=== PATIENT | female | born 1935 | race Two or more races ===

== ENCOUNTER 2021-11-01 18:13 | Inpatient (IN) | payer OTHER ==
[~2021-11-01] VITALS: Ht 152.4 cm; Wt 54.4 kg
[2021-11-01] MEDS ORDERED: METROPOLOL (19:24)
[2021-11-02] MEDS ORDERED: LISINOPRIL-HCT1 EACH (13:33)
[2021-11-02] MEDS ORDERED: PANTOPRAZOLE SO40 MG (13:33)
[2021-11-02] MEDS ORDERED: ALPRAZOLAM0.5 MG (13:33)
[2021-11-02] MEDS ORDERED: VITAMIN D350 MCG (13:34)
[2021-11-02] MEDS ORDERED: METOPROLOL SUCC50 MG (13:34)
[2021-11-02] MEDS ORDERED: ST. JOSEPH ASPI81 M2 (13:34)
[2021-11-02] MEDS ORDERED: SIMVASTATIN20 MG (13:34)
[2021-11-09] MEDS ORDERED: LOSARTAN POTAS100 MG PO (16:51)
[2021-11-09] MEDS ORDERED: INTESTINEX680 M1 PO (16:52)
[2021-11-09] MEDS ORDERED: NIFEDIPINE ER30 M1 PO (16:56)
== END 2021-11-09 18:06 | disposition home or self-care (01) | DRG 690 ==
LOC: ER 18:13 → MEDI 11-02 10:28
PROVIDERS: ADMIT Internal Medicine; ATTEND Internal Medicine
PROC: BW21ZZZ Computerized Tomography (CT Scan) of Abdomen and Pelvis (ICD-10-PCS; principal; 2021-11-02)
DX: N39.0 Urinary tract infection, site not specified (principal); Z16.12 Extended spectrum beta lactamase (ESBL) resistance; N17.8 Other acute kidney failure; K52.89 Other specified noninfective gastroenteritis and colitis; D64.9 Anemia, unspecified; E86.0 Dehydration; E87.6 Hypokalemia; B96.1 Klebsiella pneumoniae [K. pneumoniae] as the cause of diseases classified elsewhere; I10 Essential (primary) hypertension; D12.8 Benign neoplasm of rectum; Z20.822 Contact with and (suspected) exposure to COVID-19

== ENCOUNTER 2022-01-24 23:53 | Emergency (ER) | payer OTHER ==
[~2022-01-24] VITALS: Ht 152.4 cm; Wt 55.3 kg
[~2022-01-24 23:53] MED LIST: ALPRAZOLAM0.5 MG; INTESTINEX680 M1 PO; LISINOPRIL-HCT1 EACH; LOSARTAN POTAS100 MG PO; METOPROLOL SUCC50 MG; METROPOLOL; NIFEDIPINE ER30 M1 PO; PANTOPRAZOLE SO40 MG; SIMVASTATIN20 MG; ST. JOSEPH ASPI81 M2; VITAMIN D350 MCG
[2022-01-25] MEDS ORDERED: PEPCID40 MG PO (08:05)
[2022-01-25] MEDS ORDERED: ONDANSETRON ODT4 MG PO (08:05)
== END 2022-01-25 08:22 ==
LOC: ER 23:53
DX: R11.10 Vomiting, unspecified (principal); I10 Essential (primary) hypertension

== ENCOUNTER 2022-12-30 18:54 | Inpatient (IN) | payer OTHER ==
[~2022-12-30] VITALS: Ht 152.4 cm; Wt 63.5 kg
[~2022-12-30 18:54] MED LIST changes: +ONDANSETRON ODT4 MG PO; +PEPCID40 MG PO
--- NOTE | 2022-12-30 19:05 | NUR ---
SE RECIBE FEMINA ALERTA Y DESORIENTADA EN AMBULANCIA EN COMPANIA DE FAMILIAR. REFIERE QUE PTE NO COME HACE APROX 3 [address]. SE MIDEN S/V Y SE UBICA.
[2022-12-30] MEDS ORDERED: LOSARTAN POTAS100 MG PO (19:07)
[2022-12-30] MEDS ORDERED: NIFEDIPINE ER30 M1 PO (19:07)
[2022-12-30] MEDS ORDERED: ALENDRONATE SOD70 MG PO (19:08)
[2022-12-30] MEDS ORDERED: OLANZAPINE2.5 MG PO (19:08)
--- NOTE | 2022-12-30 19:23 | NUR ---
PTE FEMENINA EVALUADA POR . SE ORIENTA A PTE Y FAMILIAR SOBRE ORDENES DE [place] REFIEREN COMPRENDER. SE COELCTAN MUESTRAS DE LABROATORIOS, BAJO MEDIDAS ASEPTICAS. SE OBSERVA PTE CON CANALIZACION EN MANO L+ CON ANGIO #20 PROVENIENTE DE AMBULANCIA, PATENTE RYANNE DE EDEMA Y ERITEMA. SE ADMINISTRAN LQIUIDOS INTRAVENOSOS, XAVI ORDEN MEDICA. SE NOTIFICA A RADIOLOGIA PARA XRAY.
== END 2023-01-03 12:43 | disposition home health service (06) | DRG 194 ==
LOC: ER 18:54 → MEDJ 23:42 → SEC-K 23:42 → MEDJ 12-31 02:14
PROVIDERS: General Practice; ADMIT Internal Medicine; ATTEND Internal Medicine
PROC: BW21ZZZ Computerized Tomography (CT Scan) of Abdomen and Pelvis (ICD-10-PCS; principal; 2022-12-30)
PROC: BW24YZZ Computerized Tomography (CT Scan) of Chest and Abdomen using Other Contrast (ICD-10-PCS; 2022-12-30)
DX: J18.9 Pneumonia, unspecified organism (principal); N39.0 Urinary tract infection, site not specified; Z16.12 Extended spectrum beta lactamase (ESBL) resistance; B96.1 Klebsiella pneumoniae [K. pneumoniae] as the cause of diseases classified elsewhere; B95.2 Enterococcus as the cause of diseases classified elsewhere; E86.0 Dehydration; G30.9 Alzheimer's disease, unspecified; F02.80 Dementia in other diseases classified elsewhere, unspecified severity, without behavioral disturbance, psychotic disturbance, mood disturbance, and anxiety; R13.10 Dysphagia, unspecified; Z20.822 Contact with and (suspected) exposure to COVID-19

== ENCOUNTER 2023-05-26 14:40 | Inpatient (IN) | payer OTHER ==
[~2023-05-26] VITALS: Ht 152.4 cm; Wt 59.0 kg
[~2023-05-26 14:40] MED LIST changes: +ALENDRONATE SOD70 MG PO; +OLANZAPINE2.5 MG PO
[2023-05-26] MEDS ORDERED: 0.9 % SODIUM CHLORIDE 1,000 ML IV ONE (16:15)
[2023-05-26 17:25] LABS: HEMATOCRIT 44.2 % (36.0-45.00); HEMOGLOBIN 14.8 g/dL (12.0-15.00); MEAN CELL VOLUME 84.9 fL (80.00-100.00); MEAN CORPUSCULAR HEMOGLOBIN 28.4 pg (27.00-32.0); MEAN CORPUSCULAR HGB CONC 33.5 g/dl (32.0-36.0); PLATELET COUNT 197 K/uL (150-450); RED BLOOD COUNT 5.21 M/uL (4.00-6.00); RED CELL DISTRIBUTION WIDTH 14.3 % (11.5-14.5)
[2023-05-26 18:02] LABS: PH,URINE 5.5 (5.0-8.0); URINE APPEARANCE Turbid; URINE BILIRRUBIN Negative (NEGATIVE); URINE BLOOD Moderate; URINE COLOR Yellow; URINE LEUKOCYTE Moderate; URINE NITRATE Negative
[2023-05-26 18:06] LABS: URINE EPITHELIAL CELLS 12.6 uL (0.0-38.8); URINE RBC 84.5 uL (0.0-20.8)
[2023-05-26 18:18] LABS: INR 1.03; PARTIAL THROMBOPLASTIN TIME 31.5 SECONDS (22.0-34.0); PROTHROMBIN TIME 10.8 SECONDS (9.0-11.5)
[2023-05-26 18:26] LABS: ALBUMIN 3.1 gm/dL (3.4-5.0); BILIRUBIN TOTAL 0.28 mg/dL (0.3-1.2); CALCIUM 9.8 mg/dL (8.5-10.1); CREATININE SERUM 0.84 mg/dL (0.55-1.02); GFR 64.29; GLOBULINA 4.4 G/DL (2.4-3.5); POTASSIUM 3.52 mEq/L (3.5-5.1); TOTAL PROTEIN 7.5 gm/dL (6.4-8.2)
[2023-05-26] MEDS ORDERED: PIPERACILLIN/TAZOBACTAM SODIUM 3.375 GM VIAL IV ONE (18:45)
[2023-05-26 18:53] LABS: URINE BACTERIA > 9821.2 uL (0.0-1933); URINE GLUCOSE 500 MG/DL (NEGATIVE); URINE PROTEIN 100 (NEGATIVE)
[2023-05-26 19:04] LABS: URINE YEAST NEGATIVE /hpf
[2023-05-26] MEDS ORDERED: 0.9 % SODIUM CHLORIDE 1,000 ML IV SCH (22:15)
[2023-05-26] MEDS ORDERED: hydrALAZINE HCL 20 MG VIAL IV PRN (22:30)
[2023-05-26] MEDS ORDERED: ONDANSETRON HCL 4 MG in 0.9 % SODIUM CHLORIDE 50 ML IV PRN (22:30)
[2023-05-26] MEDS ORDERED: DEXTROSE 50 % IN WATER 0.5 G/ML DISP.SYRIN IV PRN (22:30)
[2023-05-26] MEDS ORDERED: INSULIN LISPRO 1,000 UNIT/10 ML UNITS SUBCUTANEO PRN (22:30)
[2023-05-27] MEDS ORDERED: PIPERACILLIN/TAZOBACTAM SODIUM 3.375 GM in 0.9 % SODIUM CHLORIDE 100 ML IV SCH
[2023-05-27] MEDS ORDERED: GLUCAGON 1 MG VIAL IV ONE (03:00)
[2023-05-27] MEDS ORDERED: ATROPINE SULFATE 0.1 MG/ML DISP.SYRIN IV SCH (08:00)
[2023-05-27 08:29] LABS: INR 1.06; PARTIAL THROMBOPLASTIN TIME 33.9 SECONDS (22.0-34.0); PROTHROMBIN TIME 11.1 SECONDS (9.0-11.5)
[2023-05-27 08:42] LABS: ALBUMIN 2.6 gm/dL (3.4-5.0); ALKALINE PHOSPHATASE 180 U/L (50-136); ALT/SGPT 443 U/L (12-78); AMYLASE 338 U/L (25-115); ANION GAP 13 (10.0-20.0); AST/SGOT 187 U/L (15-37); BILIRUBIN TOTAL 0.38 mg/dL (0.3-1.2); BLOOD UREA NITROGEN 25 mg/dL (7-18); BUN CREA RATIO 34 (7.0-25.0); CALCIUM 9.2 mg/dL (8.5-10.1); CARBON DIOXIDE 25 mEq/L (21-32); CHLORIDE 109 mmol/L (98-107); CHOL HDL RATIO 1.9 (0-5.0); CHOLESTEROL 125 mg/dL (0-200); CREATININE SERUM 0.73 mg/dL (0.55-1.02); GFR 75.59; GLOBULINA 3.4 G/DL (2.4-3.5); HDL 67 mg/dl (40-60); LDL 48 mg/dl (0-130); POTASSIUM 3.34 mEq/L (3.5-5.1); SODIUM 144 mmol/L (136-145); TRIGLYCERIDES 49 mg/dL (0-150); VLDL 9 (0-39)
[2023-05-27 08:45] LABS: PH,URINE 6.5 (5.0-8.0); URINE APPEARANCE Clear; URINE BILIRRUBIN Negative (NEGATIVE); URINE BLOOD Negative; URINE COLOR Yellow; URINE LEUKOCYTE Small; URINE NITRATE Negative; URINE PROTEIN Trace (NEGATIVE)
[2023-05-27] MEDS ORDERED: ATROPINE SULFATE 0.1 MG/ML DISP.SYRIN IV PRN (08:45)
[2023-05-27 08:47] LABS: URINE BACTERIA 437.1 uL (0.0-1933); URINE EPITHELIAL CELLS 6.6 uL (0.0-38.8); URINE RBC 3.1 uL (0.0-20.8); URINE WBC 94.3 uL (0.0-23.2)
[2023-05-27 08:50] LABS: C-REACTIVE PROTEIN 6.95 MG/DL (0.00-0.29); GLUCOSE FASTING 300 mg/dL (65-100); LIPASE 404 U/L (13-75); OSMOLALITY SERUM 302 MOSM/KG (275-295)
[2023-05-27] MEDS ORDERED: FAMOTIDINE/PF 20 MG in 0.9 % SODIUM CHLORIDE 8 ML IV PUSH SCH (09:00)
[2023-05-27 09:05] LABS: BILIRUBIN,CONJUGATED < 0.10 mg/dL (0.0-0.2); BILIRUBIN,UNCONJUGATED 0.28 mg/dL (0.0-0.6)
[2023-05-27 09:06] LABS: LDH 308 U/L (84-246)
[2023-05-27 09:22] LABS: HEMATOCRIT 41.4 % (36.0-45.00); HEMOGLOBIN 13.9 g/dL (12.0-15.00); MEAN CELL VOLUME 84.6 fL (80.00-100.00); MEAN CORPUSCULAR HEMOGLOBIN 28.3 pg (27.00-32.0); MEAN CORPUSCULAR HGB CONC 33.5 g/dl (32.0-36.0); PLATELET COUNT 147 K/uL (150-450); RED BLOOD COUNT 4.89 M/uL (4.00-6.00); RED CELL DISTRIBUTION WIDTH 14.4 % (11.5-14.5)
[2023-05-27 10:10] LABS: URINE GLUCOSE >=1000 MG/DL (NEGATIVE)
[2023-05-27 11:38] LABS: ERYTHROCYTE SEDIMENTATION RATE 26 mm/hr
[2023-05-27] MEDS ORDERED: SIMVASTATIN 40 MG TABLET PO SCH (17:00)
[2023-05-28] MEDS ORDERED: FAMOTIDINE/PF 20 MG in 0.9 % SODIUM CHLORIDE 8 ML IV PUSH SCH (09:00)
[2023-05-28] MEDS ORDERED: CEFTRIAXONE SODIUM 2,000 MG in 0.9 % SODIUM CHLORIDE 100 ML IV SCH (09:00)
[2023-05-28 14:31] LABS: ALBUMIN 2.3 gm/dL (3.4-5.0); BILIRUBIN TOTAL 0.41 mg/dL (0.3-1.2); CALCIUM 7.5 mg/dL (8.5-10.1); CREATININE SERUM 0.47 mg/dL (0.55-1.02); GFR 125.64; GLOBULINA 2.9 G/DL (2.4-3.5); TOTAL PROTEIN 5.2 gm/dL (6.4-8.2)
[2023-05-28 15:40] LABS: POTASSIUM 2.9 mEq/L (3.5-5.1)
[2023-05-28] MEDS ORDERED: MAGNESIUM SULFATE IN WATER 50 ML IV ONE (17:31)
[2023-05-28] MEDS ORDERED: POTASSIUM CHLORIDE IN WATER 40 MEQ/100 ML PIGGYBAG IV SCH (18:00)
[2023-05-29] MEDS ORDERED: POTASSIUM CHLORIDE IN WATER 100 ML IV ONE (10:45)
[2023-05-29] MEDS ORDERED: POTASSIUM CHLORIDE/D5W 1,000 ML IV SCH (12:30)
[2023-05-29] MEDS ORDERED: IPRATROPIUM BROMIDE 0.5 MG/2.5 ML AMPUL.NEB IH SCH (13:00)
[2023-05-29] MEDS ORDERED: POTASSIUM CHLORIDE 10 MEQ CAPSULE PO SCH (18:00)
[2023-05-29 23:19] LABS: ABG PH 7.386 (7.35-7.45); ABG PO2 101.9 mmHg (80-100); BASE EXCESS 0.5 mmol/l; BICARBONATE 25.8 mmol/l (23-25); SaO2 97.7 %; Tco2 27.2 mmol/l; o2 21 %
[2023-05-29 23:20] LABS: allen test SATISFACTORY; puncture site RADIAL RIGHT
[2023-05-30 06:50] LABS: ALBUMIN 2.2 gm/dL (3.4-5.0); BILIRUBIN TOTAL 0.16 mg/dL (0.3-1.2); CALCIUM 8.1 mg/dL (8.5-10.1); CREATININE SERUM 0.97 mg/dL (0.55-1.02); GFR 54.45; GLOBULINA 3.1 G/DL (2.4-3.5); POTASSIUM 3.52 mEq/L (3.5-5.1); TOTAL PROTEIN 5.3 gm/dL (6.4-8.2)
[2023-05-30] MEDS ORDERED: LOSARTAN POTASSIUM 50 MG TABLET PO SCH (09:00)
[2023-05-30 13:41] LABS: PH,URINE 5.5 (5.0-8.0); URINE APPEARANCE Turbid; URINE BILIRRUBIN Negative (NEGATIVE); URINE BLOOD Small; URINE COLOR Yellow; URINE LEUKOCYTE Moderate; URINE NITRATE Negative; URINE PROTEIN 30 (NEGATIVE)
[2023-05-30 13:42] LABS: URINE BACTERIA 3141.1 uL (0.0-1933); URINE EPITHELIAL CELLS 144.4 uL (0.0-38.8); URINE WBC 882.3 uL (0.0-23.2)
[2023-05-30] MEDS ORDERED: POTASSIUM CHLORIDE/D5W 1,000 ML IV SCH (14:15)
[2023-05-30 14:38] LABS: URINE GLUCOSE 100 MG/DL (NEGATIVE); URINE RBC > 10558.9 uL (0.0-20.8)
[2023-05-30 14:44] LABS: URINE YEAST MANY /hpf
[2023-05-30] MEDS ORDERED: SODIUM CHLORIDE 0.45 % 1,000 ML IV SCH (17:00)
[2023-05-31 06:26] LABS: HEMATOCRIT 35.1 % (36.0-45.00); HEMOGLOBIN 11.8 g/dL (12.0-15.00); MEAN CORPUSCULAR HEMOGLOBIN 28.7 pg (27.00-32.0); MEAN CORPUSCULAR HGB CONC 33.7 g/dl (32.0-36.0); RED BLOOD COUNT 4.13 M/uL (4.00-6.00)
[2023-05-31 06:28] LABS: PLATELET COUNT 101 K/uL (150-450)
[2023-05-31 06:38] LABS: CALCIUM 8.9 mg/dL (8.5-10.1); CREATININE SERUM 0.79 mg/dL (0.55-1.02); POTASSIUM 3.88 mEq/L (3.5-5.1)
[2023-06-01] MEDS ORDERED: DEXTROSE 5 % IN WATER 1,000 ML IV SCH (19:30)
[2023-06-03 07:44] LABS: HEMATOCRIT 30.5 % (36.0-45.00); HEMOGLOBIN 10.3 g/dL (12.0-15.00); MEAN CELL VOLUME 85.6 fL (80.00-100.00); MEAN CORPUSCULAR HGB CONC 33.9 g/dl (32.0-36.0); RED BLOOD COUNT 3.56 M/uL (4.00-6.00); RED CELL DISTRIBUTION WIDTH 14.2 % (11.5-14.5)
[2023-06-03 07:49] LABS: PLATELET COUNT 82 K/uL (150-450)
[2023-06-03 07:58] LABS: ALBUMIN 1.9 gm/dL (3.4-5.0); BILIRUBIN TOTAL 0.39 mg/dL (0.3-1.2); CALCIUM 8.9 mg/dL (8.5-10.1); CREATININE SERUM 0.75 mg/dL (0.55-1.02); GFR 73.27; GLOBULINA 3.2 G/DL (2.4-3.5); POTASSIUM 3.77 mEq/L (3.5-5.1); TOTAL PROTEIN 5.1 gm/dL (6.4-8.2)
[2023-06-05 05:23] LABS: HEMATOCRIT 27.6 % (36.0-45.00); MEAN CELL VOLUME 87.1 fL (80.00-100.00); MEAN CORPUSCULAR HGB CONC 33.5 g/dl (32.0-36.0); RED BLOOD COUNT 3.16 M/uL (4.00-6.00); RED CELL DISTRIBUTION WIDTH 13.9 % (11.5-14.5)
[2023-06-05 05:24] LABS: HEMOGLOBIN 9.2 g/dL (12.0-15.00); MEAN CORPUSCULAR HEMOGLOBIN 29.1 pg (27.00-32.0); PLATELET COUNT 123 K/uL (150-450)
[2023-06-07 05:16] LABS: MEAN CELL VOLUME 85.4 fL (80.00-100.00); MEAN CORPUSCULAR HGB CONC 34.6 g/dl (32.0-36.0); RED BLOOD COUNT 1.25 M/uL (4.00-6.00); RED CELL DISTRIBUTION WIDTH 13.9 % (11.5-14.5)
[2023-06-07 05:25] LABS: MEAN CORPUSCULAR HEMOGLOBIN 29.6 pg (27.00-32.0)
[2023-06-07 05:33] LABS: HEMATOCRIT 10.7 % (36.0-45.00); HEMOGLOBIN 3.7 g/dL (12.0-15.00)
[2023-06-07 05:34] LABS: PLATELET COUNT 122 K/uL (150-450)
[2023-06-07 05:36] LABS: CREATININE SERUM 0.45 mg/dL (0.55-1.02); GFR 132.11; POTASSIUM 3.8 mEq/L (3.5-5.1)
[2023-06-07 05:54] LABS: CALCIUM 6.5 mg/dL (8.5-10.1)
[2023-06-07 07:16] LABS: HEMATOCRIT 27.2 % (36.0-45.00); MEAN CELL VOLUME 84.6 fL (80.00-100.00); MEAN CORPUSCULAR HGB CONC 34.1 g/dl (32.0-36.0); PLATELET COUNT 318 K/uL (150-450); RED BLOOD COUNT 3.21 M/uL (4.00-6.00); RED CELL DISTRIBUTION WIDTH 14.3 % (11.5-14.5)
[2023-06-07 07:35] LABS: MEAN CORPUSCULAR HEMOGLOBIN 28.9 pg (27.00-32.0)
[2023-06-07 07:36] LABS: HEMOGLOBIN 9.3 g/dL (12.0-15.00)
== END 2023-06-07 19:22 | disposition home or self-care (01) | DRG 689 ==
LOC: ER 14:40 → MEDJ 22:47
PROVIDERS: General Practice; Internal Medicine; Student in an Organized Health Care Education/Training Program; ADMIT Internal Medicine; ATTEND Internal Medicine
PROC: BW21ZZZ Computerized Tomography (CT Scan) of Abdomen and Pelvis (ICD-10-PCS; principal; 2023-05-26)
PROC: 4A12X4Z Monitoring of Cardiac Electrical Activity, External Approach (ICD-10-PCS; 2023-05-27)
PROC: BW40ZZZ Ultrasonography of Abdomen (ICD-10-PCS; 2023-05-28)
DX: N39.0 Urinary tract infection, site not specified (principal); J69.0 Pneumonitis due to inhalation of food and vomit; K72.00 Acute and subacute hepatic failure without coma; E87.0 Hyperosmolality and hypernatremia; E86.0 Dehydration; I10 Essential (primary) hypertension; E11.65 Type 2 diabetes mellitus with hyperglycemia; Z79.4 Long term (current) use of insulin; G30.9 Alzheimer's disease, unspecified; F02.80 Dementia in other diseases classified elsewhere, unspecified severity, without behavioral disturbance, psychotic disturbance, mood disturbance, and anxiety; R41.82 Altered mental status, unspecified; R13.19 Other dysphagia; E87.6 Hypokalemia; D64.9 Anemia, unspecified

== ENCOUNTER 2025-04-25 10:19 | Inpatient (IN) | payer OTHER ==
[~2025-04-25] VITALS: Ht 154.9 cm; Wt 54.4 kg
[2025-04-25] MEDS ORDERED: 0.9 % SODIUM CHLORIDE 1,000 ML IV STA (10:28)
--- NOTE | 2025-04-25 10:31 | NUR ---
SE RECIBE PACIENTE EN AMBULANCIA. SE EVALUA PACIENTE Y LA MISMA SE ENCUENTRA ALERTA, AFASICA Y CON DEBILIDAD DEL LADO DERECHO Y DESVIACION DE LA COMUSURA LABIAL. PARAMEDICOS REFIEREN QUE LA MISMA FUE ENCONTRADA ASI EN LA MANANA DE JOSUE, SE MONITOREAN S/V Y SE UBICA PACIENTE.
[2025-04-25 11:33] LABS: BASO % 0.8 % (0.1-1.2); EOS # 0.17 (0.04-0.54); EOS % 2.0 % (0.7-7.0); LYMPH # 1.99 (1.18-3.74); LYMPH % 23.3 % (19.3-53.1); MEAN PLATELET VOLUME 10.80 fl (9.4-12.4); MONO # 0.57 (0.24-0.82); MONO % 6.7 % (4.7-12.5); NEUT # 5.71 (1.56-6.13); NEUT % 67.0 % (34.0-71.1); RED CELL DISTRIBUTION WIDTH 12.6 % (11.6-14.4)
[2025-04-25 11:38] LABS: ERYTHROCYTE SEDIMENTATION RATE 26 mm/hr (0-30)
--- NOTE | 2025-04-25 11:38 | NUR ---
PACIENTE EVALUADA POR MD QUIEN ORDENA TRATAMIENTO MEDICO, SE LE ORIENTA A FAMILIAR SOBRE EL MISMO Y REFIERE ENTENDER, SE LE CONECTA PACIENTE A MONITOR CARDIACO Y OXIMETRIA DE PULSO CONTINUA. SE LE CANALIZA EN ANTEBRAZO DERECHO, SE LE COLECTAN MUESTRAS, SE MANTIENE BAJO OBSERVACION POR CAMBIOS EN DELANEY CONDICION.
[2025-04-25 11:49] LABS: INR 0.98
[2025-04-25 12:05] LABS: ALT/SGPT 21 U/L (12-78); AST/SGOT 15 U/L (15-37); BILIRUBIN TOTAL 0.31 mg/dL (0.3-1.2); BUN CREA RATIO 27 (7.0-25.0); CREATININE SERUM 0.95 mg/dL (0.55-1.02); GFR 55.51; GLOBULINA 3.6 G/DL (2.4-3.5); GLUCOSE FASTING 121 mg/dL (65-100); OSMOLALITY SERUM 297 MOSM/KG (275-295)
[2025-04-25] MEDS ORDERED: ATORVASTATIN CALCIUM 40 MG TABLET PO SCH (20:19)
[2025-04-25] MEDS ORDERED: FAMOTIDINE/PF 20 MG in 0.9 % SODIUM CHLORIDE 8 ML IV PUSH SCH (20:19)
[2025-04-25] MEDS ORDERED: CLOPIDOGREL BISULFATE 75 MG TABLET PO SCH (20:19)
[2025-04-25] MEDS ORDERED: ONDANSETRON HCL 4 MG in 0.9 % SODIUM CHLORIDE 50 ML IV PRN (20:30)
[2025-04-25] MEDS ORDERED: ACETAMINOPHEN 500 MG GEL..CAP PO PRN (20:30)
[2025-04-25] MEDS ORDERED: 0.9 % SODIUM CHLORIDE 1,000 ML IV SCH (20:30)
[2025-04-25] MEDS ORDERED: DEXTROSE 50 % IN WATER 0.5 G/ML DISP.SYRIN IV PRN (22:45)
[2025-04-25] MEDS ORDERED: INSULIN LISPRO 1,000 UNIT/10 ML UNITS SUBCUTANEO PRN (22:45)
[2025-04-25 22:58] VITALS: BP 166/73
[2025-04-26 05:25] VITALS: BP 140/85; O2SAT 96
[2025-04-26 08:35] VITALS: BP 140/84; O2SAT 97
[2025-04-26 08:43] LABS: CHOL HDL RATIO 2.8 (0-5.0); HDL 62.0 mg/dl (40-60); LDL 81.0 mg/dl (0-130); TSH 2.23 uIU/mL (0.358-3.74); VLDL 29.0 (0-39)
[2025-04-26] MEDS ORDERED: LISINOPRIL 20 MG TABLET PO SCH (09:00)
[2025-04-26] MEDS ORDERED: METOPROLOL SUCCINATE 50 MG TAB.SR.24H PO SCH (09:00)
[2025-04-26] MEDS ORDERED: NIFEDIPINE 30 MG TAB.SA.OSM PO SCH (17:00)
[2025-04-26 18:56] VITALS: BP 111/73
[2025-04-27 03:07] VITALS: BP 160/73; O2SAT 100
[2025-04-27 08:58] VITALS: BP 125/66; O2SAT 96
[2025-04-27 18:34] VITALS: BP 117/69; O2SAT 98
[2025-04-28] VITALS: BP 107/67; O2SAT 99
[2025-04-28 08:57] VITALS: BP 128/66; O2SAT 98
[2025-04-28 19:20] VITALS: BP 127/63; O2SAT 98
[2025-04-29 01:04] VITALS: BP 117/75; O2SAT 96
[2025-04-29 09:54] VITALS: BP 120/58; O2SAT 98
[2025-04-29 16:04] LABS: COVID-19 AG NEGATIVE (NEGATIVE)
== END 2025-04-29 17:30 | disposition home or self-care (01) | DRG 65 ==
LOC: ER 10:19 → MEDI 20:44
PROVIDERS: General Practice; Physician Assistant Medical; ADMIT Internal Medicine; ATTEND Internal Medicine
PROC: BW28ZZZ Computerized Tomography (CT Scan) of Head (ICD-10-PCS; principal; 2025-04-25)
PROC: B030ZZZ Magnetic Resonance Imaging (MRI) of Brain (ICD-10-PCS; 2025-04-25)
PROC: B345ZZZ Ultrasonography of Bilateral Common Carotid Arteries (ICD-10-PCS; 2025-04-25)
PROC: B246ZZZ Ultrasonography of Right and Left Heart (ICD-10-PCS; 2025-04-25)
DX: I63.512 Cerebral infarction due to unspecified occlusion or stenosis of left middle cerebral artery (principal); G45.8 Other transient cerebral ischemic attacks and related syndromes; G81.11 Spastic hemiplegia affecting right dominant side; I11.0 Hypertensive heart disease with heart failure; R47.01 Aphasia; I50.9 Heart failure, unspecified; I10 Essential (primary) hypertension; E11.9 Type 2 diabetes mellitus without complications; Z79.4 Long term (current) use of insulin; G30.9 Alzheimer's disease, unspecified; F02.80 Dementia in other diseases classified elsewhere, unspecified severity, without behavioral disturbance, psychotic disturbance, mood disturbance, and anxiety
CPT/HCPCS: 70551